=== PATIENT | female | born 1950 | race Caucasian/White ===

== ENCOUNTER 2017-04-13 18:07 | Emergency (ER) | payer BC, OTHER ==
[2017-04-13] MEDS: HYDROCODONE/APAP (5/325) TAB PO (21:35)
[2017-04-13] MEDS: KETOROLAC 15 MG INJ IM (21:35)
== END 2017-04-13 22:56 | disposition home or self-care (01) ==
LOC: FTE 18:07
DX: M23.92 Unspecified internal derangement of left knee (principal)
CPT/HCPCS: 73562; 96372; 99284-25